=== PATIENT | female | born 1960 | race African-American/Black ===

== ENCOUNTER 2021-10-11 13:14 | Emergency (ER) | payer MEDICAID ==
[~2021-10-11] VITALS: Ht 160 cm; Wt 68.0 kg
[2021-10-11 13:15] VITALS: BP 109/65
[2021-10-11] MEDS ORDERED: NACL 0.9% 1,000 ML IV ONE (14:30)
[2021-10-11 14:45] LABS: BASOPHILS % (AUTO) 0.4 % (0.0-2.0); EOSINOPHILS # (AUTO) 0.1 K/uL (0-0.4); EOSINOPHILS % (AUTO) 1.4 % (0.0-4.0); HEMATOCRIT 42.2 % (36-48); HEMOGLOBIN 13.8 g/dL (12.0-16.0); LYMPHOCYTES # (AUTO) 1.8 K/uL (2.5-16.5); LYMPHOCYTES % (AUTO) 27.5 % (20.5-51.1); MEAN CORPUSCULAR HEMOGLOBIN 29 pg (27-31); MEAN CORPUSCULAR HGB CONC 33 g/dL (33-37); MEAN CORPUSCULAR VOLUME 89.9 fL (80-94); MONOCYTES # (AUTO) 0.5 K/uL (0.8-1.0); MONOCYTES % (AUTO) 8.3 % (1.7-9.3); NEUTROPHILS % (AUTO) 62.4 % (42.2-75.2); PLATELET COUNT (AUTO) 205 K/uL (140-450); RED BLOOD CELL COUNT(AUTO) 4.69 MIL/uL (4.20-5.40); WHITE BLOOD COUNT (AUTO) 6.4 K/uL (4.8-10.8)
[2021-10-11 15:10] LABS: ANION GAP 10.5 (8-16); CARBON DIOXIDE 26.5 mmol/L (21-32)
--- NOTE | 2021-10-11 15:10 | NUR ---
60YO FEMALE PT C/O GENERAL WEAKNESS. PT UNCOOPERATIVE WITH FULL ASSESMENT. STATES ' SHE DOESNT FEEL WELL AND HAS PAIN" UNABLE TO RATE PAIN OR INDICATE WHERE. STATES EXHAUSITION , UNABLE TO GIVE XDAYS. PT STATES "WE SHOULD KNOW WHATS GOING ON FROM HER CHART. PT AAOX4, NOT IN VISIBLE DISTRESS, RESPIRATIONS EVEN AND UNLABORED. SKIN WARM TO TOUCH, CLEAR MARION LUNG SOUNDS , ABDOMEN SOFT AND NON DISTENDED, ACTIVE X4. ALLERGIES: "NOT THAT I KNOW OFF" HX: UNOBTAINABLE
[2021-10-11] MEDS ORDERED: KETOROLAC 30 MG/ML VIAL IVP ONE (15:35)
[2021-10-11] MEDS ORDERED: IBUP-2213 PO (15:49)
[2021-10-11 15:55] VITALS: BP 130/76
[2021-10-11] MEDS ORDERED: MORPHINE SULFATE 4 MG/ML SYR IVP ONE (16:05)
--- NOTE | 2021-10-11 16:20 | NUR ---
Patient discharged with v/s stable. Written and verbal after care instructions FOR GENERAL HEADACHE given and explained. Patient alert, oriented and verbalized understanding of instructions. Ambulatory with steady gait. All questions addressed prior to discharge. ID band removed. Patient advised to follow up with PMD. Rx of IBUOROFEN given. Opportunity to ask questions provided and answered. UBER RIDE PROVIDED TO [address] [facility] [id number]
--- NOTE | 2021-10-11 18:01 | NUR ---
Chart checked and completed. The patient's care was reviewed and supervised by Josee Quesada RN.
== END 2021-10-11 16:20 | disposition home or self-care (01) ==
LOC: MED 13:14
DX: R51.9 Headache, unspecified (principal); Z86.69 Personal history of other diseases of the nervous system and sense organs
CPT/HCPCS: 36415; 80048; 85025; 96361; 96374; 99283; J1885; J7030